=== PATIENT | female | born 1950 | race Caucasian/White ===

== ENCOUNTER 2021-04-06 19:49 | Emergency (ER) | payer MEDICARE ==
[~2021-04-06] VITALS: Ht 152.4 cm; Wt 81.6 kg
[2021-04-06] MEDS ORDERED: DIAZEPAM 5 MG TAB PO ONE (20:15)
[2021-04-06] MEDS ORDERED: MECLIZINE HCL 12.5 MG TAB PO ONE (20:15)
[2021-04-06] MEDS ORDERED: ACETAMINOPHEN 325 MG TAB PO ONE (20:15)
[2021-04-06] MEDS ORDERED: AMLODIPINE BESYLATE 10 MG TAB PO ONE (20:15)
[2021-04-06] MEDS ORDERED: METOCLOPRAMIDE HCL 10 MG/2ML VIAL IV ONE (20:15)
[2021-04-06] MEDS ORDERED: MECLIZINE HCL 12.5 MG TAB ONE (20:40)
[2021-04-06] MEDS ORDERED: AMLODIPINE BESYLATE 5 MG TAB ONE (20:40)
[2021-04-06] MEDS ORDERED: DIAZEPAM INJ 5 MG/ML 2 ML ONE (20:41)
[2021-04-06] MEDS ORDERED: METOCLOPRAMIDE HCL 10 MG/2ML VIAL ONE (20:41)
[2021-04-06] MEDS ORDERED: ACETAMINOPHEN 325 MG TAB ONE (20:41)
[2021-04-06] MEDS ORDERED: SODIUM CHLORIDE 0.9% 100 ML ONE (20:41)
[2021-04-06] MEDS ORDERED: MECLIZINE HCL12.5 MG PO (22:40)
[2021-04-06] MEDS ORDERED: ONDANSETRON ODT4 MG PO (22:40)
[2021-04-07 01:05] LABS: INR 0.94; PROTHROMBIN TIME 10.5 seconds (11.9-14.5)
== END 2021-04-06 23:05 | disposition home or self-care (01) ==
LOC: FSED 19:55
DX: I10 Essential (primary) hypertension (principal); R42 Dizziness and giddiness; E11.9 Type 2 diabetes mellitus without complications
CPT/HCPCS: 36415; 70450; 80053; 82553; 83880; 84484; 85025; 85610; 93005; 99284; J2765; J3360; J7050; J8597

== ENCOUNTER 2022-08-08 19:24 | Emergency (ER) | payer OTHER, MEDICARE ==
[~2022-08-08] VITALS: Ht 152.4 cm; Wt 81.6 kg
[~2022-08-08 19:24] MED LIST: MECLIZINE HCL12.5 MG PO; ONDANSETRON ODT4 MG PO
[2022-08-08 20:39] VITALS: O2SAT 95
[2022-08-08] MEDS ORDERED: ULTRAM 50MG50 MG PO (23:25)
== END 2022-08-08 21:31 | disposition home or self-care (01) ==
LOC: ER 19:35
DX: S32.010A Wedge compression fracture of first lumbar vertebra, initial encounter for closed fracture (principal); R10.2 Pelvic and perineal pain; W18.39XA Other fall on same level, initial encounter; Y92.89 Other specified places as the place of occurrence of the external cause; I10 Essential (primary) hypertension; E11.9 Type 2 diabetes mellitus without complications
CPT/HCPCS: 72128; 72131; 72192; 99283